=== PATIENT | female | born 1960 | race Caucasian/White ===

== ENCOUNTER → 2020-01-31 09:13 | Outpatient (CLI) | payer OTHER, SELFPAY ==
--- NOTE | ~2020-01-31 | DEXA_ITS ---
Bone Density Report Name: Noris Freitas Age: 59 Sex: Female Ethnicity: White Date of : 1960 Indication: postmenopausal; screening for osteoporosis; Referring Provider: ALBERTINA MACHUCA Study: Bone densitometry was performed. Exam Date: January 31, 2020 Accession number: [id number] Bone Density: Region BMD T-score Z-score Classification AP Spine (L1-L4) 0.913 -1.2 0.2 Osteopenia Femoral Neck (Left) 0.693 -1.4 -0.1 Osteopenia Total Hip (Left) 0.798 -1.2 -0.3 Osteopenia Femoral Neck (Right) 0.734 -1.0 0.2 Normal Total Hip (Right) 0.819 -1.0 -0.1 Normal Total Hip Mean 0.809 -1.1 -0.2 Osteopenia World Health Organization criteria for BMD impression classify patients as: Normal (T-score at or above -1.0), Osteopenia (T-score between -1.0 and -2.5), or Osteoporosis (T-score at or below -2.5). 10-year Fracture Risk(1): Major Osteoporotic Fracture 7.4% Hip Fracture 0.6% Reported Risk Factors: [place] (), Neck BMD=0.693, BMI=23.1 (1) FRAX(R) Version 3.08. Fracture probability calculated for an untreated patient. Fracture probability may be lower if the patient has received treatment. Clinical Information Provided by Patient: Patient maximum height was 65.2 Menopause Age: 50 Drinks caffeinated beverages Onset of menses at age 13 Number of children 2 Impression: The patient has low bone mass, based on the Left Femoral Neck T-score. The patient has an estimated ten-year risk of hip fracture of 0.6% and an estimated ten-year risk of major fracture of 7.4%, based on the WHO FRAX algorithm. Discussion: BONE DENSITY IS LOW AT ONE OR MORE SKELETAL SITES. This patient's lowest T-score is low at one or more skeletal sites. It meets the World Health Organization's (WHO) criteria for ?low bone mass? (T-score between -1.0 and -2.5). The patient's 10-year risk of fracture as calculated by FRAX is less than the threshold where pharmacological therapy is recommended by the National Osteoporosis Foundation (NOF). However, all treatment decisions require clinical judgment and consideration of individual patient factors, including patient preferences, comorbidities, previous drug use, risk factors not captured in the FRAX model (e.g., frailty, falls, vitamin D deficiency, increased bone turnover, interval significant decline in bone density) and possible under or overestimation of fracture risk by FRAX. The patient should follow a healthful lifestyle (good nutrition with adequate calcium and vitamin D, and appropriate weight-bearing exercise). Follow-Up: Consider repeating this study in 2 to 3 years to reassess this patient's status, or sooner if there is some new clinical indication. Reported by: LOUISE on 01/31/2020 2:42:00 PM. Reviewed, dictated and
== END ==
PROVIDERS: PCP Internal Medicine; Visit Provider Obstetrics & Gynecology
DX: Z78.0 Asymptomatic menopausal state (principal); M85.89 Other specified disorders of bone density and structure, multiple sites
CPT/HCPCS: 77080

== ENCOUNTER 2020-06-27 10:31 | Outpatient (CLI) | payer OTHER, SELFPAY | END 2020-06-27 10:32 | disposition home or self-care (01) | LOC: ANHCOVIDVC 10:31 | PROVIDERS: PCP Internal Medicine | DX: Z23 Encounter for immunization (principal) | CPT/HCPCS: 0001A; 91300 ==

== ENCOUNTER 2020-07-18 10:31 | Outpatient (CLI) | payer OTHER, SELFPAY | END 2020-07-18 10:32 | disposition home or self-care (01) | LOC: ANHCOVIDVC 10:31 | PROVIDERS: PCP Internal Medicine | DX: Z23 Encounter for immunization (principal) | CPT/HCPCS: 0002A; 91300 ==

== ENCOUNTER → 2020-08-30 01:46 | Outpatient (CLI) | payer OTHER, SELFPAY ==
[2020-09-01 18:36] LABS: SARS-CoV-2 RNA PCR Negative
== END ==
PROVIDERS: PCP Internal Medicine; Visit Provider Internal Medicine Gastroenterology
DX: Z01.812 Encounter for preprocedural laboratory examination (principal); Z20.822 Contact with and (suspected) exposure to COVID-19
CPT/HCPCS: C9803; U0003; U0005

== ENCOUNTER 2020-09-03 02:14 | Day surgery (SDC) | payer OTHER, SELFPAY ==
[2020-08-25 13:53] VITALS: BMI 22.9
[2020-09-03 10:40] VITALS: BP 147/84; PULSE 77; RESP 16; TEMP 36.3; O2SAT 100; BMI 23.0
[2020-09-03] MEDS: LACTATED RINGERS 1,000 ML 150 ML IV CONT (10:44)
--- NOTE | 2020-09-03 10:48 | PM.HPGS ---
History of Present Illness History of Present Illness Consent: Risks, benefits, and alternatives have been discussed and questions answered. Patient agrees to proceed with procedure. Chief complaint: neoplasm screening Narrative: Noris Freitas is a 60 year old female referred for colon cancer screening. Her last colonoscopy was 10 years ago. Both of her grandmothers have had colon cancer Review of Systems Review of Systems: All systems reviewed & are unremarkable except as noted in HPI and below PMFSH Past Medical History Medical History Chicken pox Contact dermatitis and eczema History of multiple miscarriages x 2 Hypercholesteremia Hypothyroidism Medial meniscus tear Normal colonoscopy 2010 Surgical History Surgical History Encounter for Essure implantation H/O prior ablation treatment uterine ablation History of section x2 History of knee surgery Family History Family History Mother Family history of thyroid disease Family history of osteoporosis Hypertension Alzheimer disease Father Hypertension Diabetes mellitus High cholesterol Grandparent Family history of heart disease in male family member before age 55 Diabetes mellitus Colon cancer Cervical cancer Breast cancer Mother Hypertension High cholesterol Social History Social History Smoking packs per day: 0.5 Smoking cigarettes per day: 10.0 Years smoked: 15 Smoking pack-years: 7.50 Smoking status: Former smoker Tobacco type: cigarettes Second hand tobacco smoke exposure: No Smoking end date: 04/11/90 Alcohol intake: current Drinks per week: 7 Living arrangements: with family Gender identity (if verbalized by the patient): Female Spiritual care concerns: No Meds Home Medications and Allergies Home Medications Medication Instructions Recorded Confirmed Type ascorbate calcium (vitamin C) 500 500 mg PO DAILY 03/15/19 09/03/20 History mg tablet magnesium 200 mg tablet 200 mg PO DAILY 03/15/19 09/03/20 History multivitamin 1 tablet PO DAILY 03/15/19 09/03/20 History omega-3 fatty acids 1,000 mg 1,000 mg PO DAILY 03/15/19 09/03/20 History capsule levothyroxine 88 mcg tablet 88 mcg PO DAILY #90 tablet 04/23/20 09/03/20 Rx alprazolam 0.25 mg tablet 0.25 mg PO DAILY PRN #30 tablet 07/15/20 09/03/20 Rx biotin 10,000 mcg PO DAILY 08/25/20 09/03/20 History Allergies Allergy/AdvReac Type Severity Reaction Status Date / Time No Known Allergies Allergy Verified 09/03/20 10:39 NKFA Allergy Unknown Unknown Uncoded 09/03/20 10:39 Vital Signs Vital Signs - 24 hr 09/03/20 10:40 Temperature 36.3 C L Pulse Rate 77 Respiratory Rate 16 Blood Pressure 147/84 H Pulse Oximetry 100 Exam Const: General: alert Orientation/consciousness: patient oriented x3 Resp: Auscultation: clear to auscultation bilaterally Cardio: Rhythm: regular rhythm GI: GI Palp: Yes Soft to palpation and No Tenderness to palpation present (GI) Neuro: General: patient oriented x3 Assessment and Plan Assessment and plan (1) Colon cancer screening: Code(s): Z12.11 - Encounter for screening for malignant neoplasm of colon Status: Acute Assessment and Plan: Colonoscopy with possible biopsy or polypectomy or cautery or injection of substances.
--- NOTE | 2020-09-03 10:57 | WPDANESEPP ---
Anes - Eval Pre Procedure Procedure: Operation Date: 09/03/20 11:00 Proposed Procedures p Screening Colonoscopy - Isael Pagan MD Date/Time: 09/03/20 10:57 Pre Op Diagnosis: neoplasm screening Patient Data Age: 60 Gender: F Height: 1.65 m Weight: 62.8 kg Last Vital Signs Temp 36.3 C L 09/03/20 10:40 Pulse 77 09/03/20 10:40 Resp 16 09/03/20 10:40 BP 147/84 H 09/03/20 10:40 Pulse Ox 100 09/03/20 10:40 Allergies Allergy/AdvReac Type Severity Reaction Status Date / Time No Known Allergies Allergy Verified 09/03/20 10:39 NKFA Allergy Unknown Unknown Uncoded 09/03/20 10:39 Home Medications Medication Instructions Recorded Confirmed Type ascorbate calcium (vitamin C) 500 500 mg PO DAILY 03/15/19 09/03/20 History mg tablet magnesium 200 mg tablet 200 mg PO DAILY 03/15/19 09/03/20 History multivitamin 1 tablet PO DAILY 03/15/19 09/03/20 History omega-3 fatty acids 1,000 mg 1,000 mg PO DAILY 03/15/19 09/03/20 History capsule levothyroxine 88 mcg tablet 88 mcg PO DAILY #90 tablet 04/23/20 09/03/20 Rx alprazolam 0.25 mg tablet 0.25 mg PO DAILY PRN #30 tablet 07/15/20 09/03/20 Rx biotin 10,000 mcg PO DAILY 08/25/20 09/03/20 History Patient hx anesthesia problems: none Family hx anesthesia problems: none PMFSH Past Medical History Medical History Chicken pox Contact dermatitis and eczema History of multiple miscarriages x 2 Hypercholesteremia Hypothyroidism Medial meniscus tear Normal colonoscopy 2010 Surgical History Surgical History Encounter for Essure implantation H/O prior ablation treatment uterine ablation History of section x2 History of knee surgery Family History Family History Mother Family history of thyroid disease Family history of osteoporosis Hypertension Alzheimer disease Father Hypertension Diabetes mellitus High cholesterol Grandparent Family history of heart disease in male family member before age 55 Diabetes mellitus Colon cancer Cervical cancer Breast cancer Mother Hypertension High cholesterol Social History Social History Smoking packs per day: 0.5 Smoking cigarettes per day: 10.0 Years smoked: 15 Smoking pack-years: 7.50 Smoking status: Former smoker Tobacco type: cigarettes Second hand tobacco smoke exposure: No Smoking end date: 04/11/90 Alcohol intake: current Drinks per week: 7 Living arrangements: with family Gender identity (if verbalized by the patient): Female Spiritual care concerns: No Exam Day of Procedure 09/03/20 10:57 Patient weight: normal Heart: regular rate and rhythm Lungs: normal air movement Airway: Mallampati scale class II Neurological: alert and oriented
[2020-09-03 11:18] VITALS: BP 92/56; PULSE 76; RESP 17; O2SAT 98
[2020-09-03 11:28] VITALS: BP 84/54; PULSE 69; RESP 16; O2SAT 100
[2020-09-03 11:38] VITALS: BP 111/75; PULSE 69; RESP 20; O2SAT 100
== END 2020-09-03 11:47 | disposition home or self-care (01) ==
PROVIDERS: PCP Internal Medicine; Visit Provider Internal Medicine Gastroenterology
PROC: 0DJD8ZZ Inspection of Lower Intestinal Tract, Via Natural or Artificial Opening Endoscopic (ICD-10-PCS; CPT 45378; principal; 2020-09-03 11:00)
DX: Z12.11 Encounter for screening for malignant neoplasm of colon (principal); E78.00 Pure hypercholesterolemia, unspecified; E03.9 Hypothyroidism, unspecified; Z87.891 Personal history of nicotine dependence
CPT/HCPCS: 45378; C9803; J2704; J7120; U0003; U0005

== ENCOUNTER → 2020-11-25 03:46 | Outpatient (CLI) | payer OTHER, SELFPAY ==
[2020-11-25 21:10] LABS: SARS-CoV-2 RNA PCR Positive
== END ==
PROVIDERS: PCP Internal Medicine; Visit Provider Clinical Nurse Specialist
DX: U07.1 COVID-19 (principal); J34.89 Other specified disorders of nose and nasal sinuses
CPT/HCPCS: C9803; U0003; U0005

== ENCOUNTER → 2020-12-31 16:02 | Outpatient (CLI) | payer OTHER, SELFPAY ==
--- NOTE | ~2020-12-31 | MM_ITS ---
EXAMINATION: MM screening [facility] BI w natalie HISTORY: Screening mammogram TECHNIQUE: Craniocaudal and mediolateral oblique 3-D tomosynthesis images were obtained and synthetic 2-D images were generated. CAD analysis was submitted and interpreted. COMPARISON: 11/01/2019 [facility] bilateral digital screening mammogram BREAST PARENCHYMAL COMPOSITION: There are scattered areas of fibroglandular density. FINDINGS: There is no evidence of suspicious mass, calcification, or architectural distortion to sugg est malignancy in either breast. There has been no suspicious interval change. IMPRESSION: 1. No mammographic evidence of malignancy. 2. Recommend routine screening mammography in one year. BI-RADS Category 1: Negative Reviewed, dictated and finalized at location A.
== END ==
PROVIDERS: Visit Provider Obstetrics & Gynecology
DX: Z12.31 Encounter for screening mammogram for malignant neoplasm of breast (principal)
CPT/HCPCS: 77063; 77067

== ENCOUNTER → 2022-03-11 09:12 | Outpatient (CLI) | payer OTHER, SELFPAY ==
--- NOTE | ~2022-03-11 | DEXA_ITS ---
Bone Density Report Name: CALVIN QUINONES Age: 61 Sex: Female Ethnicity: White Date of : 1960 Indication: osteopenia;postmenopausal Referring Provider: ALBERTINA MACHUCA Study: Bone densitometry was performed. Exam Date: March 11, 2022 Accession number: [id number] Bone Density: Region BMD T-score Z-score Classification AP Spine (L1-L4) 0.929 -1.1 0.5 Osteopenia Femoral Neck (Left) 0.680 -1.5 -0.2 Osteopenia Total Hip (Left) 0.799 -1.2 -0.1 Osteopenia Femoral Neck (Right) 0.764 -0.8 0.6 Normal Total Hip (Right) 0.834 -0.9 0.1 Normal Total Hip Mean 0.817 -1.1 0.0 Osteopenia World Health Organization criteria for BMD impression classify patients as: Normal (T-score at or above -1.0), Osteopenia (T-score between -1.0 and -2.5), or Osteoporosis (T-score at or below -2.5). 10-year Fracture Risk(1): Major Osteoporotic Fracture 9.8% Hip Fracture 1.2% Reported Risk Factors: [place] (), Neck BMD=0.680, BMI=23.4, alcohol use (1) FRAX(R) Version 3.08. Fracture probability calculated for an untreated patient. Fracture probability may be lower if the patient has received treatment. Previous Exams: Region Exam Age BMD T-score BMD Change BMD Change Date g/cm2 vs Baseline vs Previous AP Spine(L1-L4) 03/11/2022 61 0.929 -1.1 0.016 0.016 01/31/2020 59 0.913 -1.2 Total Hip(Left) 03/11/2022 61 0.799 -1.2 0.001 0.001 01/31/2020 59 0.798 -1.2 Total Hip(Right) 03/11/2022 61 0.834 -0.9 0.015 0.015 01/31/2020 59 0.819 -1.0 *Denotes significance at 95% confidence level, LSC for AP Spine = 0.022 g/cm2, LSC for Total Hip = 0.027 g/cm2 Clinical Information Provided by Patient: Has 3 or more alcoholic drinks per day Has used the following medications: Vitamin D, MTV Patient maximum height was 65.2 Menopause Age: 50 Drinks caffeinated beverages Onset of menses at age 13 Number of children 2 Impression: The patient has low bone mass, based on the Left Femoral Neck T-score. The patient has an estimated ten-year risk of hip fracture of 1.2% and an estimated ten-year risk of major fracture of 9.8%, based on the WHO FRAX algorithm. The patient has risk factors, including: excessive alcohol use. No significant bone loss was observed. Discussion: BONE DENSITY IS LOW AT ONE OR MORE SKELETAL SITES. This patient's lowest T-score is low at one or more skeletal sites. It me
== END ==
PROVIDERS: PCP Internal Medicine; Visit Provider Obstetrics & Gynecology
DX: Z78.0 Asymptomatic menopausal state (principal); M85.89 Other specified disorders of bone density and structure, multiple sites
CPT/HCPCS: 77080

== ENCOUNTER → 2022-03-17 10:40 | Outpatient (CLI) | payer OTHER, SELFPAY ==
--- NOTE | ~2022-03-17 | MM_ITS ---
EXAMINATION: MM screening [facility] BI w natalie HISTORY: Screening mammogram TECHNIQUE: Craniocaudal and mediolateral oblique 3-D tomosynthesis images were obtained and synthetic 2-D images were generated. CAD analysis was submitted and interpreted. COMPARISON: 12/31/2020, 11/01/2019 BREAST PARENCHYMAL COMPOSITION: There are scattered areas of fibroglandular density. FINDINGS: No suspicious mass, calcification, or architectural distortion are identified in either sammy ast to suggest malignancy. There has been no suspicious interval change. IMPRESSION: 1. No mammographic evidence of malignancy. 2. Recommend routine screening mammography in one year. BI-RADS Category 1: Negative Reviewed, dictated and finalized at location A. A/C TECH
== END ==
PROVIDERS: PCP Internal Medicine; Visit Provider Obstetrics & Gynecology
DX: Z12.31 Encounter for screening mammogram for malignant neoplasm of breast (principal)
CPT/HCPCS: 77063; 77067

== ENCOUNTER 2023-07-08 10:06 | Outpatient (CLI) | payer OTHER, SELFPAY ==
--- NOTE | ~2023-07-08 | MM_ITS ---
EXAMINATION: MM screening [facility] BI w natalie HISTORY: Screening mammogram TECHNIQUE: Craniocaudal and mediolateral oblique 3-D tomosynthesis images were obtained and synthetic 2-D images were generated. Bilateral rotated lateral CC views. CAD analysis was submitted and interp reted. COMPARISON: 03/17/2022, 12/31/2020 bilateral screening mammogram examinations BREAST PARENCHYMAL COMPOSITION: There are scattered areas of fibroglandular density. FINDINGS: There is no evidence of suspicious mass, calcification, or architectural distortion to sugg est malignancy in either breast. There has been no suspicious interval change. IMPRESSION: 1. No mammographic evidence of malignancy. 2. Recommend routine screening mammography in one year. BI-RADS Category 1: Negative Reviewed, dictated and finalized at location A.
== END 2023-07-08 10:07 ==
LOC: MICIMG 10:07
PROVIDERS: PCP Obstetrics & Gynecology; Visit Provider Obstetrics & Gynecology
DX: Z12.31 Encounter for screening mammogram for malignant neoplasm of breast (principal)
CPT/HCPCS: 77063; 77067

== ENCOUNTER 2024-08-28 09:59 | Outpatient (CLI) | payer OTHER, SELFPAY ==
--- NOTE | ~2024-08-28 | XR_ITS ---
XR shoulder RT min 2V 08/28/2024 10:16 Indication: Right shoulder pain Procedure: 4 views right shoulder Comparison: No prior studies for comparison. Findings: There is mild polyarticular osteoarthritis. No fracture or traumatic malalignment. No soft tissue abnormality. No foreign bodies. Impression: 1: Mild polyarticular osteoarthritis. Reviewed, dictated and finalized at location B. Impression: 1: Mild polyarticular osteoarthritis.
== END 2024-08-28 10:00 | disposition home or self-care (01) ==
PROVIDERS: PCP Clinical Nurse Specialist; Visit Provider Clinical Nurse Specialist
DX: M19.011 Primary osteoarthritis, right shoulder (principal)
CPT/HCPCS: 73030

== ENCOUNTER 2024-09-20 15:16 | Outpatient (CLI) | payer OTHER, SELFPAY ==
--- NOTE | ~2024-09-20 | MM_ITS ---
EXAMINATION: MM screening [facility] BI w natalie HISTORY: Screening TECHNIQUE: Craniocaudal and mediolateral oblique 3-D tomosynthesis images were obtained and synthetic 2-D images were generated. CAD analysis was submitted and interpreted. COMPARISON: Comparison to multiple prior studies sequentially, with oldest reviewed study dated 10/31. BREAST PARENCHYMAL COMPOSITION: Not dense: There are scattered areas of fibroglandular density. FINDINGS: There is no evidence of suspicious mass, calcification, or architectural distortion to sugg est malignancy in either breast. There has been no suspicious interval change. IMPRESSION: 1. No mammographic evidence of malignancy. 2. Recommend routine screening mammography in one year. BI-RADS Category 1: Negative Reviewed, dictated and finalized at location B.
== END 2024-09-20 15:17 | disposition home or self-care (01) ==
LOC: MICIMG 15:17
PROVIDERS: PCP Clinical Nurse Specialist; Visit Provider Obstetrics & Gynecology
DX: Z12.31 Encounter for screening mammogram for malignant neoplasm of breast (principal)
CPT/HCPCS: 77063; 77067

== ENCOUNTER 2024-09-24 08:58 | Outpatient (RCR) | payer OTHER, SELFPAY ==
--- NOTE | 2024-09-24 09:59 | OPREHPOC ---
Outpatient Therapy Plan of Care This is a Multidisciplinary Plan of Care that may contain components documented by all disciplines (PT, OT, and ST.) PT Problem 1 PT Problem #1 Knowledge Deficit PT Goal 1 Goal / Goal Update Patient to demonstrate independence with HEP for improved self-reliance of symptom management. Target Visit 6 PT Problem 2 PT Problem #2 Pain PT Goal 1 Goal / Goal Update Patient to decrease subjective reports of pain to <3/10 during cross body movement for improved ADL tolerance. Target Visit 12 PT Problem 3 PT Problem #3 Impaired Strength PT Goal 1 Goal / Goal Update Patient to demonstrate R shoulder strength >=4+/5 for improved functional stability required for ADLs. Target Visit 12 PT Problem 4 PT Problem #4 Impaired Range of Motion PT Goal 1 Goal / Goal Update Pt to demonstrate an increase of R shoulder functional reach ER/IR AROM of T3/T12 to improve dressing and personal hygiene tasks. Target Visit 12
--- NOTE | 2024-09-24 09:59 | PTOPEVAL1 ---
Assessment and note entered by Nkechi Dozier, PT Evaluation Information Assessment Status Evaluation Diagnosis R shoulder pain ICD-10 Condition Codes (PT) Pain in right shoulder M25.511 Onset 4-6 months Subjective Information Pt reports her shoulder hurts with lifting, ADLs, and cross body movements. She also reports difficulty reaching behind her back. She reports it catches, causes sharp pain and cracking in the shoulder. Her pain is located on the posterior side near her axilla. Notes at times she will get cramping on the side of her neck. Her shoulder does not keep her from doing things but she has to push though the pain. She thinks the injection last week has helped her pain but did not get rid of it. She generally goes to the gym M- for about an hour, does arm and leg exercises each day. She has had to lessen the weight during her arm lifts due to the increase in pain. Pt. is R hand dominant. Reported Pain Level Pain Score 0: Self Report Assessment PT Clinical Summary Pt is a 64 year old female who presents to physical therapy with a primary complaint of R shoulder pain that aligns with the signs and symptoms consistent with impingement syndrome. Pt demonstrates R shoulder girdle weakness, pain provocation with resisted movement, decreased mobility more present in internal and external rotation, and decreased tolerance to ADLs. Pt will benefit from skilled physical therapy to address the above listed deficits and return to PLOF. HEP instructed and written handout provided, EX tolerated well with no adverse effects to note post-session. Pt was educated on importance of adherence to HEP. Pt was also educated on anatomy, prognosis, home modalities, and PT POC. Plan of Care Interventions Electrical Stimulation,Hot Pack/Cold Pack,Manual Therapy,Neuro Re-education,Therapeutic Activities, Therapeutic Exercise PT Services Indicated Yes Treatment Frequency and 2x/wk for 12 sessions Duration These treatments will address the objective and functional deficits as defined above. The patient will be advanced safely and appropriately in order for the patient to progress towards his/her prior level of function. Additional exercises will be introduced and as well as a comprehensive home exercise program upon discharge, if needed, ?to ensure carryover of functional gains achieved in the clinic. This treatment plan has been reviewed and agreement upon by the patient.
--- NOTE | 2024-10-17 10:52 | PTOPDC ---
Assessment and note entered by Nkechi Dozier, PT Evaluation Information Assessment Status Discharge - Pt Not Present Diagnosis R shoulder pain ICD-10 Condition Codes (PT) Pain in right shoulder M25.511 Onset 4-6 months Subjective Information Pt called and spoke to front office. Reports she is feeling tremendously better and wants to discharge from physical therapy. Assessment PT Clinical Summary Pt contacted clinic to self-discharge from physical therapy. She reports feeling tremendously better since her evaluation and performing her HEP and continuing with her gym routine. She did not receive any follow up sessions after her evaluation. Pt to be discharged from PT on this date. Plan of Care PT Services Indicated Yes
== END 2024-10-17 14:02 | disposition home or self-care (01) ==
LOC: ANHPT 08:58
PROVIDERS: PCP Clinical Nurse Specialist; Visit Provider Clinical Nurse Specialist
DX: M25.511 Pain in right shoulder (principal)
CPT/HCPCS: 97110; 97161; 97530

== ENCOUNTER 2024-10-05 12:39 | Outpatient (CLI) | payer OTHER, SELFPAY ==
--- NOTE | ~2024-10-05 | DEXA_ITS ---
Bone Density Report Name: CALVIN QUINONES Age: 64 Sex: Female Ethnicity: White Date of : 1960 Indication: osteopenia; Referring Provider: ALBERTINA MACHUCA Study: Bone densitometry was performed. Exam Date: October 05, 2024 Accession number: [id number] Bone Density: Region BMD T-score Z-score Classification AP Spine(L1-L4) 0.909 -1.3 0.4 Osteopenia Femoral Neck (Left) 0.661 -1.7 -0.2 Osteopenia Total Hip (Left) 0.765 -1.4 -0.3 Osteopenia Femoral Neck (Right) 0.691 -1.4 0.0 Osteopenia Total Hip (Right) 0.800 -1.2 0.0 Osteopenia Total Hip Mean 0.783 -1.3 -0.2 Osteopenia World Health Organization criteria for BMD impression classify patients as: Normal (T-score at or above -1.0), Osteopenia (T-score between -1.0 and -2.5), or Osteoporosis (T-score at or below -2.5). 10-year Fracture Risk(1): Major Osteoporotic Fracture 11% Hip Fracture 1.5% Reported Risk Factors: [place] (), Neck BMD=0.661, BMI=23.8, alcohol use (1) FRAX(R) Version 3.08. Fracture probability calculated for an untreated patient. Fracture probability may be lower if the patient has received treatment. Previous Exams: -- Region Exam Age BMD T-score BMD Change BMD Change Date g/cm2 vs Baseline vs Previous -- AP Spine (L1-L4) 10/05/2024 64 0.909 -1.3 -0.5% -2.2% 03/11/2022 61 0.929 -1.1 1.8% 1.8% 01/31/2020 59 0.913 -1.2 Total Hip(Left) 10/05/2024 64 0.765 -1.4 -4.1%* -4.2%* 03/11/2022 61 0.799 -1.2 0.1% 0.1% 01/31/2020 59 0.798 -1.2 Total Hip(Right) 10/05/2024 64 0.800 -1.2 -2.3% -4.1%* 03/11/2022 61 0.834 -0.9 1.8% 1.8% 01/31/2020 59 0.819 -1.0 -- *Denotes significance at 95% confidence level, LSC for AP Spine = 0.022 g/cm2, LSC for Total Hip = 0.027 g/cm2 Clinical Information Provided by Patient: Has 3 or more alcoholic drinks per day Has used the following medications: Vitamin D, Calcium Patient maximum height was 65 Menopause Age: 50 Drinks caffeinated beverages Onset of menses at age 13 Number of children 2 Impression: The patient has low bone mass, based on the Left Femoral Neck T-score. The patient has an estimated ten-year risk of hip fracture of 1.5% and an estimated ten-year risk of major fracture of 11%, based on the WHO FRAX algorithm. The patient has risk factors, including: excessive alcohol use. The BMD for the Total Hip(Left) decreased, changing by -4.2% since the last DXA exam. The BMD for the Total Hip(Right) decreased, changing by -4.1% since the last DXA exam. Discussion: BONE DENSITY IS LOW AT ONE OR MORE SKELETAL SITES. This patient's lowest T-score is low at one or more skeletal sites. It meets the World Health Organization's (WHO) criteria for ?low bone mass? (T-score between -1.0 and -2.5). The patient's 10-year risk of fracture as calculated by FRAX is less than the threshold where pharmacological therapy is recommended by the National Osteoporosis Foundation (NOF). However, all treatment decisions require clinical judgment and consideration of individual patient factors, including patient preferences, comorbidities, previous drug use, risk factors not captured in the FRAX model (e.g., frailty, falls, vitamin D deficiency, increased bone turnover, interval significant decline in bone density) and possible under or overestimation of fracture risk by FRAX. The patient should follow a healthful lifestyle (good nutrition with adequate calcium and vitamin D, and appropriate weight-bearing exercise). Follow-Up: Consider repeating this study in 2 years to reassess this patient's status, or sooner if there is some new clinical indication. Reported by: CAROLINE on 10/05/2024 12:58:00 PM. Reviewed, dictated and finalized at location A.
== END 2024-10-05 12:40 | disposition home or self-care (01) ==
LOC: MICIMG 12:40
PROVIDERS: PCP Clinical Nurse Specialist; Visit Provider Obstetrics & Gynecology
DX: M85.89 Other specified disorders of bone density and structure, multiple sites (principal); Z78.0 Asymptomatic menopausal state
CPT/HCPCS: 77080